=== PATIENT | male | born 1990 | race Caucasian/White ===

== ENCOUNTER 2024-01-23 11:11 | Emergency (ER) | payer SELFPAY ==
[~2024-01-23] VITALS: Ht 172.7 cm; Wt 80.7 kg
[2024-01-23] MEDS ORDERED: NAP500T GT (12:55)
[2024-01-23 13:18] VITALS: BP 133/87; PULSE 65; RESP 18; TEMP 98.9; O2SAT 96
[2024-01-23] MEDS: KETOROLAC TROMETH 60MG/2ML VIAL IM ONE (13:27)
== END 2024-01-23 13:30 | disposition home or self-care (01) ==
LOC: ER 11:11
DX: S09.90XA Unspecified injury of head, initial encounter (principal); W22.8XXA Striking against or struck by other objects, initial encounter; Y93.89 Activity, other specified; Y92.89 Other specified places as the place of occurrence of the external cause; Y99.8 Other external cause status
CPT/HCPCS: 70450; 72125; 96372; 99285; J1885